=== PATIENT | male | born 1940 | race Caucasian/White ===

== ENCOUNTER 2019-08-06 14:48 | Outpatient (CLI) | payer MEDICARE, SELFPAY ==
--- NOTE | 2019-08-06 | ECHO_ITS ---
Patient Info Name: Germania Ponce Age: 78 years : 1940 Gender: Male Ht: 70 in Wt: 155 lbs BSA: 1.86 m2 HR: 80 bpm BP: 131 / 85 mmHg Heart Rhythm: Sinus Arrhythmia Technical Quality: Excellent Exam Date: 08/06/2019 3:22 PM Exam Location: [facility] Patient Status: Outpatient Admit Date: 08/06/2019 Staff Ordering Physician: Hector, David Le MD Classroom Assistant: Otoniel Quinteros RDCS Attending Provider: Hector, David Le MD Referring Physician: Hector NEGRON; Exam Type: CA echo doppler color flow Study Info Indications I47.9 - Paroxysmal tachycardia, unspecified Complete two-dimensional, color flow and Doppler transthoracic echocardiogram is performed. Strain analysis performed. History/Risk Factors Paroxysmal atrial tachycardia. Summary 1. Left ventricular chamber dimension is normal. 2. Left ventricular systolic function is normal, estimated at 60-65%. 3. The left ventricular diastolic function is normal. 4. E/e' 7 is not elevated. 5. Global longitudinal strain is normal at -18.6%. 6. Left atrial chamber dimension is mildly enlarged. 7. Right atrial chamber dimension is mildly enlarged. 8. There is moderate aortic valve sclerosis. 9. There is trace aortic valve regurgitation. 10. There is mild mitral valve regurgitation. 11. There is mild tricuspid valve regurgitation. 12. No pulmonary hypertension, estimated pulmonary arterial systolic pressure is 33 mmHg. 13. Dilated inferior vena cava with >50% collapse upon inspiration consistent with elevated right atrial pressure, 10 mmHg. Left Ventricle E/e' 7 is not elevated. Global longitudinal strain is normal at -18.6%. Left ventricular chamber dimension is normal. Left ventricular systolic function is normal, estimated at 60-65%. The left ventricular diastolic function is normal. Right Ventricle Right ventricular chamber dimension is normal. Right ventricular systolic function is normal. Left Atria Left atrial chamber dimension is mildly enlarged. Right Atria Right atrial chamber dimension is mildly enlarged. Aortic Valve The aortic valve is trileaflet. There is moderate aortic valve sclerosis. There is no aortic valve stenosis. There is trace aortic valve regurgitation. Pulmonic Valve There is no pulmonic regurgitation. Mitral Valve There is no mitral valve stenosis. There is mild mitral valve regurgitation. Tricuspid Valve There is mild tricuspid valve regurgitation. No pulmonary hypertension, estimated pulmonary arterial systolic pressure is 33 mmHg. Pericardium/Pleural There is no pericardial effusion. Inferior Vena Cava Dilated inferior vena cava with >50% collapse upon inspiration consistent with elevated right atrial pressure, 10 mmHg. Aorta The aortic root size at the sinus of Valsalva is normal. Left Ventricular Outflow Tract Name Value Normal LVOT 2D LVOT Diameter 2.1 cm LVOT Doppler LVOT Peak Gradient 4 mmHg LVOT Mean Gradient 2 mmHg LVOT VTI 22 cm LVOT VTI/AV VT
== END 2019-08-06 14:49 | disposition home or self-care (01) ==
PROVIDERS: PCP Internal Medicine; Visit Provider Internal Medicine
DX: I47.9 Paroxysmal tachycardia, unspecified (principal); I35.1 Nonrheumatic aortic (valve) insufficiency; I36.1 Nonrheumatic tricuspid (valve) insufficiency; I34.0 Nonrheumatic mitral (valve) insufficiency
CPT/HCPCS: 93306

== ENCOUNTER 2020-11-01 10:41 | Outpatient (CLI) | payer MEDICARE, SELFPAY ==
--- NOTE | 2020-11-09 16:07 | WPDHOLTEREM ---
Holter/Event Monitor Holter/Event Monitor Date of procedure: 11/01/20 Procedure Type: 48 hour holter monitor Indications: PSVT Conclusion: 1. 48 hour holter monitor on 11/01/20. 2. Predominant rhythm is sinus rhythm. HR range 46-138 bpm; average HR 71 bpm. 3. There are 624 premature supraventricular complexes and 18 supraventricular couplets. There are 2 episodes of atrial tachycardia, fastest at 143 bpm and longest lasting 9 beats. 4. Ther are 66 premature ventricular complexes. No ventricular tachycardia. 5. There is one episode of pause greater than 2 seconds at 2.6 seconds at 06:22 after an ectopic atrial rhythm which changes to sinus rhythm. 6. No symptoms available for correlation.
== END 2020-11-01 10:42 | disposition home or self-care (01) ==
PROVIDERS: PCP Internal Medicine; Visit Provider Internal Medicine Cardiovascular Disease
DX: I47.1 Supraventricular tachycardia (principal)
CPT/HCPCS: 93225; 93226

== ENCOUNTER 2022-11-30 10:12 | Outpatient (CLI) | payer MEDICARE, SELFPAY ==
--- NOTE | ~2022-11-30 | XR_ITS ---
EXAMINATION: XR barium swallow w SBFT DATE: 11/30/2022 11:13 INDICATION: Dysphagia, feeling of fullness TECHNIQUE: The patient drank thick barium, gas-producing crystals, and thin barium. Conventional supi ne abdomen radiographs and fluoroscopy of the esophagus and small bowel were performed. Fluoroscopy e xposure time was 3.6 minutes. The DAP for this procedure was 40.539 Gycm2. COMPARISON: None. 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 There is a moderate volume of colonic stool. Miriam nt catheter tubing courses over the right abdomen and coils in the pelvis. There is no mass or strict ure of the esophagus. Presbyesophagus is noted. There is a small sliding hiatal hernia. There was no gastroesophageal reflux with provocative maneuvers however, retained contrast material in the esophag us refluxes with provocative maneuvers and while the patient is supine. SMALL BOWEL SERIES: Transit time from the stomach to proximal colon was approximately 15 minutes. There is normal caliber and mucosal fold pattern throughout the small bowel. No tethering or abnormal mass effect observed u gilda the small bowel with real-time fluoroscopy. IMPRESSION: 1. Presbyesophagus. 2. Small sliding hiatal hernia with reflux of esophageal contents when patient is supine and with pro vocative maneuvers. 2. Unremarkable small bowel follow-through. Reviewed, dictated and finalized at location A. IMPRESSION: 1. Presbyesophagus. 2. Small sliding hiatal hernia with reflux of esophageal contents when patient is supine and with provocative maneuvers. 2. Unremarkable small bowel follow-through.
== END 2022-11-30 10:13 | disposition home or self-care (01) ==
PROVIDERS: PCP Family Medicine; Visit Provider Family Medicine
DX: R13.10 Dysphagia, unspecified (principal); R11.10 Vomiting, unspecified; K22.89 Other specified disease of esophagus; K44.9 Diaphragmatic hernia without obstruction or gangrene
CPT/HCPCS: 74240